=== PATIENT | female | born 1995 | race Caucasian/White ===

== ENCOUNTER 2017-03-21 12:17 | Emergency (ER) | payer SELFPAY ==
[2017-03-21] MEDS ORDERED: Cefepime(*) 2 GM in NS 0.9% 50 ML* 50 ML IVPB ONE (13:32)
[2017-03-21] MEDS ORDERED: Vancomycin(*) 750 MG in NS 0.9% 250 ML* 250 ML IVPB ONE (13:32)
[2017-03-21] MEDS ORDERED: metroNIDAZOLE IV 500 MG/100ML* 500 MG/100 ML BAG IVPB ONE (13:33)
[2017-03-21] MEDS ORDERED: Ketorolac INJ* 30 MG/ML 1 ML VIAL IV PUSH ONE (14:17)
--- NOTE | 2017-03-21 14:27 | ED ---
Upper Extremity Pain - HPI Summary HPI Summary: Rt hand dominant pt here w/ Rt wrist/hand pain and swelling since last night. Hot to touch. Pain with movement of fingers/wrist here. She has an area along her forearm of "old injury/scar tissue" from injecting drugs - reports the swelling and pain started here and progressed to wrist and hand. Denies d/c, fever, chills, N/V, chest pain, arm pain in elbow, shoulder or neck. No h/o cellulitis/abscess and no known MRSA/MSSA infection. NOTE: pt reports she no longer injects drugs but still takes them by mouth. She is attempting to get herself into rehab but still on a waiting list through suboxone clinic here in [place]. - History of Current Complaint Chief Complaint: EDExtremityUpper Stated Complaint: RT WRIST/HAND SWELLING Time Seen by Provider: 03/21/17 13:05 Hx Obtained From: Patient, Family/Audit Manager - boyfriend Hx Last Menstrual Period: one month ago - Allergies/Home Medications Allergies/Adverse Reactions: Allergies Allergy/AdvReac Type Severity Reaction Status Date / Time Sulfa Antibiotics Allergy Unknown Unknown Verified 02/11/13 15:40 Reaction Details PMH/Surg Hx/FS Hx/Imm Hx Previously Healthy: Yes Endocrine/Hematology History: Denies: Hx Anticoagulant Therapy, Hx Blood Disorders, Autoimmune Disease Respiratory History: Reports: Hx Asthma - under control - doesn't have medications Musculoskeletal History: Denies: Hx Arthritis, Hx Tendonitis, Hx of Fracture(s) - Surgical History Surgery Procedure, Year, and Place: skin tag removal - Immunization History Immunizations Up to Date: Yes Infectious Disease History: No Infectious Disease History: Denies: Hx of Known/Suspected MRSA, Traveled Outside the in Last 30 Days - Family History Known Family History: Positive: None - Social History Occupation: Employed Full-time - self employed - housekeeping Alcohol Use: None Substance Use Type: Reports: Prescribed Substance Use Comment - Amount & Last Used: pt will not admit to what type of substance she uses Hx Tobacco Use: Yes Smoking Status (MU): Heavy Every Day Tobacco Smoker Review of Systems Constitutional: Negative Negative: Fever, Chills, Fatigue Negative: Chest Pain Negative: Shortness Of Breath Positive: no symptoms reported Musculoskeletal: Other - see HPI Skin: Other - see HPI Neurological: Negative Negative: Weakness, Paresthesia, Numbness Psychological: Normal All Other Systems Reviewed And Are Negative: Yes Physical Exam Triage Information Reviewed: Yes Vital Signs On Initial Exam: Initial Vitals Temp Pulse Resp BP Pulse Ox 100.0 F 95 16 108/70 98 03/21/17 12:22 03/21/17 12:22 03/21/17 12:22 03/21/17 12:22 03/21/17 12:22 Vital Signs Reviewed: Yes Appearance: Positive: Well-Appearing, No Pain Distress - at rest - worse w/ touch or movment of affected area, Well-Nourished Skin: Positive: Warm, Dry - old linear scar with scabbing over dorsal mid Rt forearm - surrounding skin with erythema, fever to touch, induration - edema and erytehma travels to wrist and into hand/fingers Head/Face: Positive: Normal Head/Face Inspection Eyes: Positive: EOMI ENT: Positive: Hearing grossly normal Respiratory/Lung Sounds: Positive: Breath Sounds Present Cardiovascular: Positive: Pulses are Symmetrical in both Upper and Lower Extremities Musculoskeletal: Positive: Strength/ROM Intact, Pain @ - with end range gripping with Rt hand and wrist movements; no pain w/ elbow/shoulder movements Neurological: Positive: Normal, Sensory/Motor Intact, Alert, Oriented to Person Place, Time, CN Intact II-III Psychiatric: Positive: Normal Diagnostics - Vital Signs Vital Signs Temp Pulse Resp BP Pulse Ox 03/21/17 12:22 100.0 F 95 16 108/70 98 - Laboratory Result Diagrams: 03/21/17 14:45 03/21/17 14:45 Lab Statement: Any lab studies that have been ordered have been reviewed, and results considered in the medical decision making process. Course/Dx - Diagnoses Provider Diagnoses: Cellulitis of right arm Discharge - Discharge Plan Condition: Stable Disposition: HOME Prescriptions: Cephalexin CAP* [Keflex CAP*] 500 mg PO QID #40 cap DOXYcycline CAP(*) [DOXYcycline 100MG CAP(*)] 100 mg PO BID #20 cap Patient Education Materials: Cellulitis (ED) Forms: *Work Release Referrals: Parish Landa MD [Primary Care Provider] - Additional Instructions: Rest, elevate You may wear STEPH wrap for compression, swelling Ice alternating with heat for comfort Ibuprofen 600mg every 6 hours with food for pain Complete antibiotics as directed - take probiotics in between doses to prevent yeast infection, diarrhea Follow-up with PCP Sunday for wound recheck *if you develop fever, chills, streaking, purulent drainage, return to ED
[2017-03-21 14:53] LABS: Hematocrit 38 % (35-47); Hemoglobin 12.5 g/dl (12.0-16.0); Mean Corpuscular HGB Conc 33 g/dl (31-36); Mean Corpuscular Hemoglobin 29 pg (27-31); Mean Corpuscular Volume 86 fL (80-97); Mean Platelet Volume 9 um3 (7.4-10.4); Red Blood Count 4.38 10^6/ul (4.0-5.4); Red Cell Distribution Width 13 % (10.5-15); White Blood Count 5.4 10^3/ul (3.5-10.8)
[2017-03-21] MEDS ORDERED: NS 0.9% 50 ML* 50 ML ONE (15:08)
[2017-03-21 15:11] LABS: BUN/Creatinine Ratio 15.4 (8-20); C Reactive Protein 23.54 mg/L (< 5.00); Calcium 9.3 mg/dL (8.6-10.3); EGFR African American 189.6 (>60); EGFR Non-African American 147.5 (>60); Globulin 3.4 g/dL (2-4); Total Bilirubin 0.5 mg/dL (0.2-1.0); Total Protein 7.4 g/dL (6.4-8.9)
--- NOTE | 2017-03-21 15:22 | RAD ---
Indication: Right hand swelling and pain. 4 views of the right hand demonstrates no fracture. No other bone or joint abnormality is noted. IMPRESSION: No fracture of the right hand is noted.
[2017-03-21 15:54] LABS: Potassium 3.9 mmol/L (3.5-5.0)
[2017-03-21] MEDS ORDERED: Cephalexin CAP* 500 MG PO ONE (16:34)
[2017-03-21 18:14] VITALS: BP 118/54
== END 2017-03-21 17:30 | disposition home or self-care (01) ==
LOC: ED 12:17
DX: L03.113 Cellulitis of right upper limb (principal); J45.909 Unspecified asthma, uncomplicated; Z88.2 Allergy status to sulfonamides; F17.210 Nicotine dependence, cigarettes, uncomplicated
CPT/HCPCS: 36415; 80053; 83605; 85025; 86140; 96365; 96366; 96375; 99282; A9270-GY; J0692; J1885; J3370

== ENCOUNTER 2018-03-31 19:25 | Emergency (ER) | payer SELFPAY ==
[2018-03-31] MEDS ORDERED: NS 0.9% 1000 ML*IV.FLUID IV ONE (20:35)
[2018-03-31] MEDS ORDERED: Acetaminophen TAB* 325 MG PO ONE (20:35)
--- NOTE | 2018-03-31 20:35 | ED ---
Upper Extremity Pain - HPI Summary HPI Summary: This is scribe Tova Alfaro documenting for attending David Shanks MD. This patient is a 23 year old F presenting to [facility] accompanied by her parents with a chief complaint of left hand and wrist pain, swelling and redness after injecting heroin to the dorsal aspect of the left hand between the thumb and first finger three days ago. Swelling began roughly 8 hours afterwards. Patient reports the needle was new. I, Dr. Shanks ,personally performed the services described in this documentation as scribed in my presence and it is both accurate and complete - History of Current Complaint Chief Complaint: EDExtremityUpper Stated Complaint: LT WRIST PAIN Time Seen by Provider: 03/31/18 20:27 Hx Obtained From: Patient Hx Last Menstrual Period: one month ago Mechanism Of Injury: Other - injection Onset/Duration: Started Days Ago Timing: Constant Severity Initially: Mild Severity Currently: Moderate Pain Location: Hand Aggravating Factor(s): Nothing Alleviating Factor(s): Nothing Associated Signs & Symptoms: Positive: Swelling, Redness - Allergies/Home Medications Allergies/Adverse Reactions: Allergies Allergy/AdvReac Type Severity Reaction Status Date / Time MS Sulfa Antibiotics Allergy Unknown Unknown Verified 02/11/13 15:40 [Sulfa Antibiotics] Reaction Details PMH/Surg Hx/FS Hx/Imm Hx Endocrine/Hematology History: Denies: Hx Anticoagulant Therapy, Hx Blood Disorders Respiratory History: Reports: Hx Asthma - under control - doesn't have medications Musculoskeletal History: Denies: Hx Arthritis, Hx Tendonitis Psychiatric History: Reports: Hx Substance Abuse - Surgical History Surgery Procedure, Year, and Place: skin tag removal Infectious Disease History: No Infectious Disease History: Denies: Hx of Known/Suspected MRSA, Traveled Outside the [place] in Last 30 Days - Family History Known Family History: Positive: Hypertension - Social History Alcohol Use: None Substance Use Type: Reports: Prescribed Substance Use Comment - Amount & Last Used: pt will not admit to what type of substance she uses Hx Tobacco Use: Yes Smoking Status (MU): Heavy Every Day Tobacco Smoker Review of Systems Positive: Myalgia - left hand, Edema - left hand Positive: Other - erythemea left hand All Other Systems Reviewed And Are Negative: Yes Physical Exam - Summary Physical Exam Summary: VITAL SIGNS: Reviewed. GENERAL: Patient is a well-developed and nourished femalewho is lying comfortable in the stretcher. Patient is not in any acute respiratory distress. HEAD AND FACE: No signs of trauma. No ecchymosis, hematomas or skull depressions. No sinus tenderness. EYES: PERRLA, EOMI x 2, No injected conjunctiva, no nystagmus. EARS: Hearing grossly intact. Ear canals and tympanic membranes are within normal limits. MOUTH: Oropharynx within normal limits. NECK: Supple, trachea is midline, no adenopathy, no JVD, no carotid bruit, no c- spine tenderness, neck with full ROM. CHEST: Symmetric, no tenderness at palpation LUNGS: Clear to auscultation bilaterally. No wheezing or crackles. CVS: Regular rate and rhythm, S1 and S2 present, no murmurs or gallops appreciated. ABDOMEN: Soft, non-tender. No signs of distention. No rebound no guarding, and no masses palpated. Bowel sounds are normal. EXTREMITIES: FROM in all major joints, no cyanosis or clubbing. Swelling, redness, and tenderness over left wrist going distally in fingers and proximally into forearm NEURO: Alert and oriented x 3. No acute neurological deficits. Speech is normal and follows commands. SKIN: Dry and warm, redness and swelling of left hand and wrist Triage Information Reviewed: Yes Vital Signs On Initial Exam: Initial Vitals Temp Pulse Resp BP Pulse Ox 100.0 F 74 15 105/69 100 03/31/18 19:32 03/31/18 19:32 03/31/18 19:32 03/31/18 19:32 03/31/18 19:32 Vital Signs Reviewed: Yes Diagnostics - Vital Signs Vital Signs Temp Pulse Resp BP Pulse Ox 03/31/18 19:32 100.0 F 74 15 105/69 100 - Laboratory Lab Statement: Any lab studies that have been ordered have been reviewed, and results considered in the medical decision making process. Course/Dx - Course Course Of Treatment: 23 y/o F presents to the ED with left hand swelling, redness, and pain. She states that she injected heroin between the thumb and first finger on the dorsal aspect of the left hand. Patient was adviseed to be admitted for IV antibiotics; however the patient did not want to stay. Patient left the ED AMA. Reviewed risks of leaving hospital and not being admitted which includes but is not limited to endocarditis, cellulitis, losing the limb, and . Patient signed AMA form and fully understands the risks explained to her. - Diagnoses Provider Diagnoses: Left against medical advice, Cellulitis of left hand, Intravenous drug abuse Discharge - Sign-Out/Discharge Documenting (check all that apply): Patient Departure - left AMA - Discharge Plan Condition: Stable Disposition: AGAINST MEDICAL ADVICE Referrals: Parish Landa MD [Primary Care Provider] -
[2018-03-31] MEDS ORDERED: Ketorolac INJ* 30 MG/ML 1 ML VIAL IV PUSH ONE (20:36)
[2018-03-31] MEDS ORDERED: Vancomycin(*) 1,000 MG in NS 0.9% 250 ML* 250 ML IVPB ONE (20:36)
[2018-03-31 21:06] VITALS: BP 0/0
== END 2018-03-31 21:05 | disposition left against medical advice (07) ==
LOC: ED 19:25
DX: M79.642 Pain in left hand (principal); F17.210 Nicotine dependence, cigarettes, uncomplicated; L03.114 Cellulitis of left upper limb; Z53.21 Procedure and treatment not carried out due to patient leaving prior to being seen by health care provider; F19.10 Other psychoactive substance abuse, uncomplicated
CPT/HCPCS: 96374; 99282

== ENCOUNTER 2018-03-31 21:51 | Emergency (ER) | payer SELFPAY ==
[2018-03-31] MEDS ORDERED: NS 0.9% 1000 ML*IV.FLUID IV ONE (23:40)
[2018-03-31] MEDS ORDERED: Acetaminophen TAB* 325 MG PO ONE (23:45)
[2018-03-31] MEDS ORDERED: Vancomycin(*) 1,000 MG VIAL IVPB SCH (23:45)
[2018-03-31] MEDS ORDERED: Vancomycin(*) 750 MG in NS 0.9% 250 ML* 250 ML IVPB ONE (23:50)
--- NOTE | 2018-04-01 | ED ---
Skin Complaint - HPI Summary HPI Summary: 23-year-old female presents with erythema to left wrist for the past 4 days. She states she has history of cellulitis. She states she shot heroin into the radial aspect of her right wrist 4 days ago. She states 8 hours later she developed redness in the area. She states the redness has been spreading. She admits to decreased range of motion of her wrist. She denies any history of MRSA. She has no medical conditions. She denies any numbness or tingling. She states the area feels very warm. She admits to fevers but states may be due to the sun. patient was seen in ED earlier and left ama before anything could be done. - History of Current Complaint Chief Complaint: EDExtremityUpper Time Seen by Provider: 03/31/18 23:39 Stated Complaint: LT WRIST PAIN Hx Last Menstrual Period: one month ago Pain Intensity: 10 - Allergy/Home Medications Allergies/Adverse Reactions: Allergies Allergy/AdvReac Type Severity Reaction Status Date / Time MS Sulfa Antibiotics Allergy Unknown Unknown Verified 02/11/13 15:40 [Sulfa Antibiotics] Reaction Details PMH/Surg Hx/FS Hx/Imm Hx Endocrine/Hematology History: Denies: Hx Anticoagulant Therapy, Hx Blood Disorders Respiratory History: Reports: Hx Asthma - under control - doesn't have medications Musculoskeletal History: Denies: Hx Arthritis, Hx Tendonitis Psychiatric History: Reports: Hx Substance Abuse - Surgical History Surgery Procedure, Year, and Place: skin tag removal - Immunization History Immunizations Up to Date: Yes Infectious Disease History: No Infectious Disease History: Denies: Hx of Known/Suspected MRSA, Traveled Outside the [place] in Last 30 Days - Family History Known Family History: Positive: None, Hypertension - Social History Alcohol Use: None Substance Use Type: Reports: Heroin, Prescribed Substance Use Comment - Amount & Last Used: pt will not admit to what type of substance she uses Hx Tobacco Use: Yes Smoking Status (MU): Heavy Every Day Tobacco Smoker Review of Systems Positive: Fever Negative: Chest Pain Negative: Shortness Of Breath Positive: Rash All Other Systems Reviewed And Are Negative: Yes Physical Exam Triage Information Reviewed: Yes Vital Signs On Initial Exam: Initial Vitals Temp Pulse Resp BP Pulse Ox 101.2 F 76 15 116/72 98 03/31/18 21:52 03/31/18 21:52 03/31/18 21:52 03/31/18 21:52 03/31/18 21:52 Vital Signs Reviewed: Yes Appearance: Positive: Well-Appearing Skin: Positive: Other - erythema and edema of right wrist to forearm Head/Face: Positive: Normal Head/Face Inspection Eyes: Positive: Normal, Conjunctiva Clear ENT: Positive: Pharynx normal Respiratory/Lung Sounds: Positive: Clear to Auscultation, Breath Sounds Present Cardiovascular: Positive: Normal, RRR Musculoskeletal: Positive: Limited @ - left wrist, Other - good pulses, nontender over tendon sheath left hand, full ROM of left fingers, capillary refill<2 secs, warm to touch Neurological: Positive: Normal Psychiatric: Positive: Normal Diagnostics - Vital Signs Vital Signs Temp Pulse Resp BP Pulse Ox 03/31/18 23:40 96 03/31/18 21:52 101.2 F 76 15 116/72 98 - Laboratory Result Diagrams: 04/01/18 00:02 04/01/18 00:02 Lab Statement: Any lab studies that have been ordered have been reviewed, and results considered in the medical decision making process. - Radiology chest Xray Interpretation: No Acute Changes Radiology Interpretation Completed By: ED Physician Course/Dx - Course Course Of Treatment: 23-year-old female presents with erythema to left wrist for the past 4 days. She states she has history of cellulitis. She states she shot heroin into the radial aspect of her right wrist 4 days ago. She states 8 hours later she developed redness in the area. She states the redness has been spreading. She admits to decreased range of motion of her wrist. She denies any history of MRSA. She has no medical conditions. She denies any numbness or tingling. She states the area feels very warm. She admits to fevers but states may be due to the sun. on exam has extensive erythema and edema of left wrist and forearm. nontender over flexor tendon. neurovascular intact. vitals temp 101. labs wbc normal. unable to get lactic. multiple attempts at an IV attempted but unsuccessful. lactic normal. discussed options with patient EJ vs oral antibiotics and patient will do oral. explained importance of taking medication and told if gets worst to return. told to follow [facility] with [facility]. patient understand and agrees with plan. - Differential Diagnoses - Skin Complaint Differential Diagnoses: Abscess, Cellulitis, Systemic Illness - Diagnoses Provider Diagnoses: Cellulitis of left arm Discharge - Sign-Out/Discharge Documenting (check all that apply): Patient Departure - Discharge Plan Condition: Good Disposition: HOME Prescriptions: Cephalexin CAP* [Keflex CAP*] 500 mg PO QID #39 cap DOXYcycline CAP(*) [DOXYcycline 100MG CAP(*)] 100 mg PO BID #19 cap Patient Education Materials: Cellulitis (ED) Referrals: [facility] [Outside] Additional Instructions: Take Keflex four times a day for 10 days take doxycycline twice a day for 10 days elevate extremity take tyenlol or ibuprofen as needed for pain Follow up with [facility] within 2 days Return to ED if develop fever, area of redness spreads, or any new or worsening symptoms - Billing Disposition and Condition Condition: GOOD Disposition: Home
[2018-04-01 00:15] LABS: ABS Basophils 0 10^3/ul (0-0.2); ABS Eosinophils 0.4 10^3/ul (0-0.6); ABS Monocytes 0.6 10^3/ul (0-0.8); ABS Neutrophils 4.1 10^3/ul (1.5-7.7); ABS Nucleated RBC 0 10^3/ul; Eosinophil % 5.1 % (0-6); Hematocrit 37 % (35-47); Hemoglobin 12.3 g/dl (12.0-16.0); Mean Corpuscular HGB Conc 34 g/dl (31-36); Mean Corpuscular Hemoglobin 27 pg (27-31); Mean Corpuscular Volume 80 fL (80-97); Nucleated Red Blood Cells % 0.1; Platelet Count 189 10^3/ul (150-450); Red Blood Count 4.57 10^6/ul (4.00-5.40); Red Cell Distribution Width 14 % (10.5-15)
[2018-04-01 00:28] LABS: INR 0.97 (0.77-1.02)
[2018-04-01 00:29] LABS: Urine Appearance Clear; Urine Blood Negative (Negative); Urine Color Straw; Urine Ketones Negative (Negative); Urine Protein Negative (Negative); Urine Specific Gravity 1.005 (1.010-1.030); Urine Urobilinogen Negative (Negative)
[2018-04-01] MEDS ORDERED: Cephalexin CAP* 500 MG PO ONE (00:53)
[2018-04-01] MEDS ORDERED: DOXYcycline CAP(*) 100 MG PO ONE (01:28)
[2018-04-01 01:33] VITALS: BP 125/85
--- NOTE | 2018-04-01 07:59 | RAD ---
HISTORY: fever COMPARISONS: None VIEWS: 1: frontal portable view of the chest at 11:50 PM FINDINGS: LINES AND TUBES: None. CARDIOMEDIASTINAL SILHOUETTE: The cardiomediastinal silhouette is normal for portable technique. PLEURA: The costophrenic angles are sharp. No pleural abnormalities are noted. LUNG PARENCHYMA: The lungs are clear. ABDOMEN: The upper abdomen is clear. There is no subphrenic gas. BONES AND SOFT TISSUES: No bone or soft tissue abnormalities are noted. IMPRESSION: NO ACTIVE CARDIOPULMONARY DISEASE. R0
== END 2018-04-01 01:46 | disposition home or self-care (01) ==
LOC: ED 21:51
DX: L03.114 Cellulitis of left upper limb (principal); R50.9 Fever, unspecified; R21 Rash and other nonspecific skin eruption; F17.210 Nicotine dependence, cigarettes, uncomplicated
CPT/HCPCS: 36415; 71045; 80053; 81003; 83605; 85025; 85610; 85730; 87040; 96365; 99282; A9270-GY

== ENCOUNTER 2024-09-23 06:38 | Inpatient (IN) ==
[2024-09-23] MEDS ORDERED: Buffered Lidocaine 1% SYRIN 1 ml INTRADERM ONE (06:54)
[2024-09-23] MEDS ORDERED: Prochlorperazine 5 mg/ml 2 ml VIAL (10 mg) IV PRN (06:54)
[2024-09-23] MEDS ORDERED: Lidocaine 1% VIAL 10 MG/ML 30 ML VIAL INJ PRN (06:54)
[2024-09-23] MEDS ORDERED: Nalbuphine 10 MG/ML 1 ML VIAL IV PRN (06:54)
[2024-09-23] MEDS: Lactated Ringers 1000 ml BAG 1,000 ML IV ONE (07:00)
[2024-09-23 07:45] LABS: Hematocrit 32.8 % (35-45); Hemoglobin 10.7 g/dL (11.5-14.3); Mean Corpuscular Hemoglobin 26.6 pg (27-33); Mean Corpuscular Hgb Conc 32.5 g/dL (31-36); Mean Corpuscular Volume 81.7 fL (80-97); Red Blood Count 4.01 10^6/uL (3.63-4.92); Red Cell Distribution Width 14.7 % (12-17); White Blood Count 19.4 10^3/uL (3.8-11.8)
[2024-09-23] MEDS: Methadone ORALSYR CONC LIQ 10 MG/ML PO ONE ×2 (07:54→15:21)
[2024-09-23 07:55] LABS: Albumin 3.4 g/dL (3.5-5.7); Albumin/Globulin Ratio 0.8 (1-3); Calcium 8.8 mg/dL (8.6-10.3); Creatinine, Serum 0.78 mg/dL (0.51-0.95); Globulin 4.1 g/dL (2-4); Potassium 3.8 mmol/L (3.5-5.0); Total Bilirubin 0.4 mg/dL (0.2-1.0); Total Protein 7.5 g/dL (6.4-8.9); Uric Acid 4.4 mg/dL (2.3-6.6); eGFR CKD-EPI 105.4 (>60)
[2024-09-23] MEDS: Penicillin G Potassium IV 5,000,000 UNITS in NS 0.9% 100 ml BAG 100 ML IVPB ONE (07:55)
[2024-09-23 08:12] LABS: ABS Basophils 0.1 10^3/uL (0.0-0.1); ABS Eosinophils 0.1 10^3/uL (0.0-0.5); ABS Lymphocytes 2.5 10^3/uL (1.0-4.8); ABS Monocytes 0.6 10^3/uL (0.0-0.9); ABS Neutrophils 16.1 10^3/uL (1.5-7.6); ABS Nucleated RBC 0.01 10^3/ul; Eosinophil % 0.7 %; Lymphocyte % 12.7 %; Mean Platelet Volume 10.3 fL (7.5-11.2); Platelet Count 465 10^3/uL (150-450)
[2024-09-23 09:07] LABS: HIV 4th Generation Nonreactive (Nonreactive)
[2024-09-23] MEDS: Lactated Ringers 1000 ml BAG 1,000 ML IV SCH (09:15)
[2024-09-23] MEDS ORDERED: Methadone ORALSYR CONC LIQ 10 MG/ML PO ONE (09:18)
[2024-09-23] MEDS ORDERED: Lidocaine/Epinephrin 1.5%/200 5 ML AMP INJ ONE ×2 (09:48→09:59)
[2024-09-23] MEDS: OBEPIDURAL (200 ML) 200 ML EPIDURAL SCH (10:10)
[2024-09-23 10:12] LABS: Activated Partial Thrombo Time 27.5 seconds (26.0-38.0); INR 0.88 (0.85-1.14)
[2024-09-23] MEDS: Ondansetron 4 mg VIAL 2 MG/ML 2 ml VIAL IV PRN (10:38)
[2024-09-23] MEDS: Oxytocin in NS 30,000 MILLI.UNIT/500 ML BAG IV SCH ×2 (11:53→21:30)
[2024-09-23] MEDS: Penicillin G Potassium IV 3,000,000 UNITS in NS 0.9% 100 ml BAG 100 ML IVPB SCH (12:00)
[2024-09-23 12:16] LABS: Urine Appearance Clear; Urine Bilirubin Negative (Negative); Urine Blood Negative (Negative); Urine Color Yellow; Urine Glucose Negative (Negative); Urine Ketones 2+ (Negative); Urine Nitrite Negative (Negative); Urine Protein 1+ (>=30 mg/dL) (Negative); Urine Specific Gravity 1.025 (1.002-1.030); Urine Urobilinogen Negative (Negative)
[2024-09-23 12:18] LABS: Urine Benzodiazepine Screen None Detected (None Detect); Urine Cannabinoids Screen None Detected (None Detect); Urine Opiates Screen Presumptive Positive (None Detect)
[2024-09-23 12:20] LABS: Urine Bacteria Absent /HPF (Absent); Urine Red Blood Cell Trace(0-2/hpf) /HPF (0-Trace); Urine Squamous Epithelial Cell Present /HPF (Absent); Urine White Blood Cell Trace(0-5/hpf) /HPF (0-Trace)
[2024-09-23] MEDS ORDERED: Oxytocin in NS 30,000 MILLI.UNIT/500 ML BAG IV SCH (13:55)
[2024-09-23] MEDS ORDERED: Bupivacaine 0.25% SDV PF 10 ML VIAL INJ ONE (15:24)
[2024-09-23] MEDS ORDERED: Lidocaine 2% PF 5 ML VIAL ONE (15:24)
[2024-09-23] MEDS ORDERED: Sodium Citrate/Citric Acid LIQ 15 ML UDC PO PRN (15:31)
[2024-09-23] MEDS ORDERED: Lactated Ringers 1000 ml BAG 1,000 ML IV ONE (15:31)
[2024-09-23] MEDS ORDERED: Phenylephrine 40 mcg/mL 10mL (400mcg) SYRINGE IV PUSH PRN ×2 (15:31)
[2024-09-23] MEDS ORDERED: Lactated Ringers 1000 ml BAG 1,000 ML IV SCH (16:00)
[2024-09-23] MEDS: OBEPIDURAL (200 ML) 200 ML EPIDURAL ONE (17:59)
[2024-09-23] MEDS ORDERED: Nicotine PATCH 21 MG/24 HR PATCH TRANSDERM SCH (18:00)
[2024-09-23] MEDS ORDERED: Lidocaine 2% w/ EPI 1:200,000 MPF 20 ML SDV VIAL ONE (18:18)
[2024-09-23 18:29] LABS: Hepatitis B Surface Antigen Nonreactive (Nonreactive)
[2024-09-23 18:47] LABS: Hepatitis C Antibody Reactive (Negative)
[2024-09-23] MEDS: Famotidine IV 10 MG/ML 2 ml VIAL (20 mg) ONE (20:45)
[2024-09-23] MEDS ORDERED: fentaNYL 100 mcg/2 ml 50 MCG/ML VIAL ONE (21:23)
[2024-09-23] MEDS: fentaNYL 100 mcg/2 ml 50 MCG/ML VIAL ONE (21:28)
[2024-09-23] MEDS ORDERED: Glycerin ADULT 2.4 gm SUPP PR PRN (21:36)
[2024-09-23] MEDS: ceFOXitin 2 GM IVPREMIX 2 GM/50 ML BAG IVPB ONE (21:51)
[2024-09-24] MEDS ORDERED: ceFOXitin 2 GM IVPREMIX 2 GM/50 ML BAG IVPB ONE (06:00)
[2024-09-24] MEDS: Dibucaine 1% OINT 28.35 GM TUBE PR PRN (07:45)
[2024-09-24] MEDS: Witch Hazel PAD JAR TOPICAL PRN (07:45)
[2024-09-24 08:10] LABS: Hemoglobin 8.2 g/dL (11.5-14.3); Mean Corpuscular Hemoglobin 26.5 pg (27-33); Mean Corpuscular Hgb Conc 32.6 g/dL (31-36); Mean Corpuscular Volume 81.3 fL (80-97); Mean Platelet Volume 9.9 fL (7.5-11.2); Platelet Count 438 10^3/uL (150-450); Red Blood Count 3.08 10^6/uL (3.63-4.92); Red Cell Distribution Width 15.1 % (12-17); White Blood Count 24.9 10^3/uL (3.8-11.8)
[2024-09-24 08:19] LABS: ABS Basophils 0.1 10^3/uL (0.0-0.1); ABS Lymphocytes 2.8 10^3/uL (1.0-4.8); ABS Monocytes 1.1 10^3/uL (0.0-0.9); ABS Neutrophils 20.9 10^3/uL (1.5-7.6); ABS Nucleated RBC 0.01 10^3/ul; Eosinophil % 0.1 %; Lymphocyte % 11.2 %
[2024-09-24] MEDS ORDERED: Nicotine PATCH 21 MG/24 HR PATCH TRANSDERM SCH (11:00)
[2024-09-24] MEDS ORDERED: COWS Protocol Daily Order Reminder FOLLOW UP SCH (11:00)
[2024-09-24 13:22] VITALS: BP 121/75
[2024-09-24] MEDS ORDERED: Iron Sucrose 20 MG/ML 5 ML VIAL IV PUSH ONE (13:56)
[2024-09-24] MEDS: Iron Sucrose 200 MG in NS 0.9% 100 ml IVPB ONE (14:51)
[2024-09-25 12:00] LABS: Chlamydia trachomatis NAA Negative (Negative); Neisseria gonorrhoeae (GC) NAA Negative (Negative)
== END 2024-09-24 16:23 | disposition home or self-care (01) | DRG 560 ==
LOC: MCHOBOUT 06:38 → MCHOB 06:39
PROVIDERS: ADMIT Obstetrics & Gynecology; ATTEND Obstetrics & Gynecology